=== PATIENT | female | born 1955 | race Caucasian/White ===

== ENCOUNTER → 2019-09-23 12:45 | Outpatient (BNVA) | payer MEDICAID, SELFPAY | PROVIDERS: Family Provider Internal Medicine; PCP Internal Medicine; Visit Provider Specialist | DX: R29.90 Unspecified symptoms and signs involving the nervous system (principal); M96.1 Postlaminectomy syndrome, not elsewhere classified; F17.210 Nicotine dependence, cigarettes, uncomplicated; Z98.890 Other specified postprocedural states | CPT/HCPCS: 62370; 99212 ==

== ENCOUNTER → 2020-03-16 13:09 | Outpatient (BNVA) | payer MEDICAID, SELFPAY | PROVIDERS: Family Provider Internal Medicine; PCP Internal Medicine; Visit Provider Specialist | DX: M96.1 Postlaminectomy syndrome, not elsewhere classified (principal); F17.210 Nicotine dependence, cigarettes, uncomplicated | CPT/HCPCS: 62370; 99213 ==

== ENCOUNTER → 2020-09-21 12:57 | Outpatient (BNVA) | payer MEDICAID, SELFPAY | PROVIDERS: Family Provider Internal Medicine; PCP Internal Medicine; Visit Provider Specialist | DX: M96.1 Postlaminectomy syndrome, not elsewhere classified (principal); Z96.89 Presence of other specified functional implants; F17.210 Nicotine dependence, cigarettes, uncomplicated | CPT/HCPCS: 62370; 99214 ==

== ENCOUNTER → 2021-02-25 12:36 | Outpatient (BNVA) | payer MEDICAID, SELFPAY | PROVIDERS: Family Provider Internal Medicine; PCP Internal Medicine; Visit Provider Specialist | DX: M96.1 Postlaminectomy syndrome, not elsewhere classified (principal); R29.90 Unspecified symptoms and signs involving the nervous system; F17.210 Nicotine dependence, cigarettes, uncomplicated | CPT/HCPCS: 62370; 99213; 99214 ==

== ENCOUNTER → 2021-08-12 12:54 | Outpatient (BNVA) | payer MEDICAID, SELFPAY | PROVIDERS: Family Provider Internal Medicine; PCP Internal Medicine; Visit Provider Specialist | DX: M96.1 Postlaminectomy syndrome, not elsewhere classified (principal); M51.36 Other intervertebral disc degeneration, lumbar region; Z79.891 Long term (current) use of opiate analgesic; F17.210 Nicotine dependence, cigarettes, uncomplicated | CPT/HCPCS: 62370; 99213 ==

== ENCOUNTER → 2022-01-20 14:15 | Outpatient (BNVA) | payer MEDICARE, MEDICAID, SELFPAY | PROVIDERS: Family Provider Internal Medicine; PCP Internal Medicine; Visit Provider Specialist | DX: Z45.1 Encounter for adjustment and management of infusion pump (principal); Z96.89 Presence of other specified functional implants; M51.17 Intervertebral disc disorders with radiculopathy, lumbosacral region; R25.1 Tremor, unspecified; M96.1 Postlaminectomy syndrome, not elsewhere classified | CPT/HCPCS: 62370; 99214 ==

== ENCOUNTER 2022-03-14 13:21 | Outpatient (CLI) | payer MEDICARE, MEDICAID, SELFPAY ==
--- NOTE | 2022-03-14 14:00 | CT_ITS ---
WS: [id number] EXAMINATION: Moderate severe hypertrophic facet changes and postsurgical change adjacent. No evidence of spinal st enosis at remaining levels. Disc spaces are also well maintained at remaining levels. REASON FOR EXAM: G20 - Parkinson's disease lumbar pain COMPARISON: None available. IV CONTRAST ADMINISTERED: Omnipaque 350 100 ml TOTAL EXAM DLP: 2241.[address] scans at [facility] use at least one of these dose optimization techniques: automat ed exposure control; mA and/or kV adjustment per patient size (includes targeted exams where dose is matched to clinical indication); or iterative reconstruction. FINDINGS: There is spinal fusion with pedicle screws and rods from L3 to S1. At the L2-3 level there is marked disc narrowing probably related to an osteophyte disc complex and vacuum disc change with hypertrophi c facet changes resulting in prominent diffuse generalized bilateral neural foraminal stenosis and mo derate to severe spinal stenosis. There is a neurostimulator lead entering at the L3-4 level extendin g cephalad in the dorsal epidural position. There is mild anterolisthesis of approximately 3 mm of L5 . S1. Intervertebral disc spaces are well maintained from L3 to S1. Disc spaces are also well maintaine d from T12 to L2. There is no sign of loosening of any of the pedicle screws. There is no evidence of focal areas of pa thologic contrast enhancement to suggest epidural abscess/discitis. CT/CT lumbar spine wo/w con [id number] IMPRESSION: Moderate to severe spinal stenosis at the L2-3 level most likely secondary to a prominent osteophyte disc complex retropulsed into the spinal canal. Increased artifact at this level from pedicle screws just beginning at this level. Neuro stimulator lead immediately adjacent. Disc spaces well maintained at remaining lumbar levels with no evidence of othe r levels of spinal stenosis or discitis.
[2022-03-14] MEDS: iohexol 350 mg/mL 500 mL Btl (per mL) IV (14:59)
[2022-03-14 15:10] LABS: Blood Urea Nitrogen 12 mg/dL (8-23); Glomerular Filtration Rate 50.9 mL/min (90-130)
== END 2022-03-14 13:22 | disposition home or self-care (01) ==
LOC: RAD 13:23
PROVIDERS: PCP Internal Medicine; Visit Provider Specialist
DX: G20 Parkinson's disease (principal); Z96.89 Presence of other specified functional implants; M48.061 Spinal stenosis, lumbar region without neurogenic claudication; M25.78 Osteophyte, vertebrae
CPT/HCPCS: 72133; 82565; 84520; Q9967

== ENCOUNTER → 2022-06-30 12:51 | Outpatient (BNVA) | payer MEDICARE, MEDICAID, SELFPAY | PROVIDERS: PCP Internal Medicine; Visit Provider Specialist | DX: M53.87 Other specified dorsopathies, lumbosacral region (principal); M51.36 Other intervertebral disc degeneration, lumbar region; Z45.1 Encounter for adjustment and management of infusion pump; Z96.89 Presence of other specified functional implants; M96.1 Postlaminectomy syndrome, not elsewhere classified; Z79.891 Long term (current) use of opiate analgesic | CPT/HCPCS: 62370; 99214 ==

== ENCOUNTER → 2022-12-08 12:58 | Outpatient (BNVA) | payer MEDICARE, MEDICAID, SELFPAY | PROVIDERS: PCP Internal Medicine; Visit Provider Specialist | DX: M51.36 Other intervertebral disc degeneration, lumbar region (principal); Z96.89 Presence of other specified functional implants; M53.87 Other specified dorsopathies, lumbosacral region; M96.1 Postlaminectomy syndrome, not elsewhere classified; Z45.1 Encounter for adjustment and management of infusion pump | CPT/HCPCS: 62370; 99213 ==

== ENCOUNTER → 2023-05-11 14:01 | Outpatient (BNVA) | payer MEDICARE, MEDICAID, SELFPAY | PROVIDERS: PCP Internal Medicine; Visit Provider Specialist | DX: Z96.89 Presence of other specified functional implants (principal); M53.87 Other specified dorsopathies, lumbosacral region; M51.36 Other intervertebral disc degeneration, lumbar region | CPT/HCPCS: 95991; 99213 ==

== ENCOUNTER → 2024-04-02 10:47 | Outpatient (BNVA) | payer MEDICARE, MEDICAID, SELFPAY | PROVIDERS: PCP Internal Medicine; Visit Provider Specialist | DX: Z96.89 Presence of other specified functional implants (principal); M53.87 Other specified dorsopathies, lumbosacral region; R03.0 Elevated blood-pressure reading, without diagnosis of hypertension | CPT/HCPCS: 62370; 99214 ==

== ENCOUNTER → 2024-07-02 09:49 | Outpatient (BNVA) | payer MEDICARE, MEDICAID, SELFPAY | PROVIDERS: PCP Internal Medicine; Visit Provider Specialist | DX: Z96.89 Presence of other specified functional implants (principal); M53.87 Other specified dorsopathies, lumbosacral region; R03.0 Elevated blood-pressure reading, without diagnosis of hypertension | CPT/HCPCS: 62370; 99213 ==

== ENCOUNTER → 2024-11-26 15:05 | Outpatient (BNVA) | payer MEDICARE, MEDICAID, SELFPAY | PROVIDERS: PCP Internal Medicine; Visit Provider Specialist | DX: Z96.89 Presence of other specified functional implants (principal); M53.87 Other specified dorsopathies, lumbosacral region; R03.0 Elevated blood-pressure reading, without diagnosis of hypertension | CPT/HCPCS: 62370; 99214 ==